=== PATIENT | female | born 1940 | race Caucasian/White ===

== ENCOUNTER 2016-11-25 11:55 | Emergency (ER) | payer OTHER, MEDICARE ==
[2016-11-25 12:53] LABS: % IMMATURE GRANULYOCYTES 0.4 % (0.0-1.1); ABSOLUTE IMMATURE GRANULOCYTES 0.03 10^3/uL (0.00-0.10); ADD DIFF? NO; ADD MORPH? NO; ADD SCAN? NO; ATYPICAL LYMPHOCYTE FLAG 0 (0-99); FRAGMENT RBC FLAG 0 (0-99); HEMATOCRIT 47.3 % (38.0-47.0); HEMOGLOBIN 16.4 g/dL (12.6-16.3); LEFT SHIFT FLG 0 (0-99); LIPEMIA HEMOLYSIS FLAG 90 (0-99); MEAN CELL HEMOGLOBIN 31.2 pg (27.9-34.1); MEAN CELL HEMOGLOBIN CONCENTR. 34.7 g/dL (32.4-36.7); MEAN CELL VOLUME 89.9 fL (81.5-99.8); MEAN PLATELET VOLUME 8.6 fL (8.7-11.7); PLATELET CLUMPS FLAG 0 (0-99); PLATELET COUNT 261 10^3/uL (150-400); RED BLOOD CELL COUNT 5.26 10^6/uL (4.18-5.33); RED CELL DISTRIBUTION WIDTH 12.6 % (11.5-15.2)
--- NOTE | 2016-11-25 13:04 | CPEKG ---
Heart Rate: 63 RR Interval: 952 P-R Interval: 184 QRSD Interval: 128 QT Interval: 492 QTC Interval: 504 P [place]: 32 QRS [place]: 1 T Wave [place]: 12 EKG Severity - ABNORMAL ECG - EKG Impression: SINUS RHYTHM EKG Impression: RIGHT BUNDLE BRANCH BLOCK EKG Impression: QTc prolonged to 504 Electronically Signed By: Jules Calderon 25-Nov-2016 16:25:27
[2016-11-25 13:08] LABS: ALANINE AMINOTRANSFERASE 32 IU/L (9-52); ALBUMIN 4.2 g/dL (3.5-5.0); ALKALINE PHOSPHATASE 114 IU/L (38-126); ANION GAP 20 mEq/L (8-16); ASPARTATE AMINOTRANSFERASE 21 IU/L (14-46); BILIRUBIN,TOTAL 0.9 mg/dL (0.1-1.4); CALCIUM 9.6 mg/dL (8.5-10.4); CARBON DIOXIDE 14 mEq/l (22-31); CHLORIDE 105 mEq/L (97-110); CREATININE 0.8 mg/dL (0.6-1.0); GLOMERULAR FILTRATION RATE > 60; GLUCOSE 139 mg/dL (70-100); SODIUM 139 mEq/L (134-144); TOTAL PROTEIN 7.3 g/dL (6.3-8.2)
[2016-11-25 13:11] VITALS: TEMP 97.3
[2016-11-25 13:19] LABS: TROPONIN I < 0.012 ng/mL (0-0.034)
--- NOTE | 2016-11-25 13:43 | UCPHY ---
H & P Patient Type: New Chief Complaint Nursing Narrative: pt. states severe dizziness this am, has had intermittent bouts the last 1-1.5weeks,pressure also to chest this last week., noticed palpatations today. Vomited x1 here upon arrival. denies fever/chills Time Seen by Provider: 11/25/16 13:06 HPI/ROS: CHIEF COMPLAINT: 1. severe spinning with profound vomiting and nausea 2. Intermittent chest tightness 3. periods of difficulty swallowing, with pain HISTORY OF PRESENT ILLNESS: this is a medically stable 76-year-old female with several problems discussed today. That which happened today that prompted visit is outlined below. The issues with respect to her chest tightness and difficulty swallowing will be outlined in the review of systems. First was what happened today while out having coffee. Initially she had been up the day for several hours feeling totally fine. In fact she spent sometime this coffee shop visiting with a friend feeling well and had gone up stairs to the bathroom there without incident. As she left shopping she felt a little under easy while sitting in the car at thinking maybe she was not capable of driving it. When she got home she felt further unsteady and then noted that she went to lay down, after a period of time, at which time she started feeling , particularly ill with a sense of nausea. She went to get up and felt markedly worse with a profound sense of spinning and the like. It was like nothing she has ever experienced before. She contacted friend who brought her here. She was unable to get out of the car and walk on her own but had come in by wheelchair. She really was not attuned to and recognizing the fact she had some occipital pressure but upon checking with her in discussing with her she has noted some. At the same token she was able to move both arms legs equally well without any trouble with coordination or strength. Furthermore she had no difficulty with vision as well as difficulties. There is no speech problems arm word finding issues or enunciation problems. Her speech remained fluent. No recent trauma. At this point in time there is none on the chest pain as noted below 1 of the review of systems. Further as she has vomited upon arriving here there has been no recurrence of the symptoms under the GI category REVIEW OF SYSTEMS: Constitutional: No fever, no chills. Eyes: No discharge. No diplopia ENT: No sore throat. Cardiovascular: Some 10-14 days ago while watching TV without any particular exertion she had a sense that she had a tightness across her chest was if has her bra was too tight. The symptoms last for for couple of hours and then abated completely. In the interim she has had no exercise induced symptomatology or decrease in exercise capacity. Furthermore there was no pleuritic component at that time. Finally despite the stress of this particular illness there is no recurrence of this kind of tightness like feeling in the chest. There has been no shortness of breath or nausea or diaphoresis at that time. In the interim she has continued to do usual activities without difficulty. Respiratory: No cough, shortness of breath, or wheezing. Gastrointestinal: While she has been vomiting today secondary to the spinning sensation there has been no antecedent problems with GI upset. She does recall having trouble several weeks ago if not months ago with a sense that she had could not swallow correctly and had some pain with swallowing. This was not really associated with the evening meal. It subsided but is occurred on occasions since. She does not have a remote history of acid peptic disease. Genitourinary: No hematuria or frequency. Musculoskeletal: No back pain. Skin: No rashes. Neurological: No headache. 10 point ROS otherwise negative Source: Patient Exam Limitations: No limitations - Personal History Current Tetanus Diphtheria and Acellular Pertussis (TDAP): Unsure - Medical/Surgical History Hx Asthma: No Hx Chronic Respiratory Disease: No Hx Diabetes: No Hx Cardiac Disease: No Hx Renal Disease: No Hx Cirrhosis: No Hx Alcoholism: No Hx HIV/AIDS: No Hx Splenectomy or Spleen Trauma: No Other PMH: med hx-none. surg-left humerus,rt shoulder - Family History Significant Family History: No pertinent family hx, Other (Both parents of noncardiac causes) - Social History Smoking Status: Never smoked Tobacco Use: Secondhand (Parents smoked as a child) Alcohol Use: None Drug Use: None - Physical Exam Exam: General Appearance: Alert, marked distress as I enter the room with cloth over her eyes but there is no pallor or diaphoresis.. Afebrile. Normal phonation. No respiratory distress. The minute I sit her up after conducting a Barnay- Test she started vomiting and has both nystagmus at rest before later down and when she comes up but not during the provocative maneuvers during the Barnay- Test Eyes: Pupils equal and round no pallor or injection. No icterus. there is horizontal nystagmus at rest, with her sitting up ENT, Mouth: Mucous membranes dry. Pharynx without erythema or exudate. TM Clear. Neck: No adenopathy. Supple. No JVD. Trachea in midline. Respiratory: There are no retractions, lungs are clear to auscultation. Cardiovascular: Regular rate and rhythm, without murmur Abdomen: Soft and nontender, no masses, bowel sounds normal. Scaphoid. Neurological: Ox3. No motor weakness. Sensation intact. She can't perform [id number] and amlm-vg-[id number] as well as rapid movements well. However when laid her back for the Barnay-Test there is no nystagmus with head to the right or left. She has no difficulties., but when I sit her up from that position she became profoundly nauseated and started vomiting of food type nature without any hematemesis. Also she had nystagmus that time. Skin: Warm and dry, no rashes. Musculoskeletal: No joint swelling. Extremities: No edema. Homans sign negative. No cords. Psychiatric: Normal affect. Constitutional: Initial Vital Signs Temperature (C) 36.3 C 11/25/16 12:20 Heart Rate 76 11/25/16 12:20 Respiratory Rate 18 11/25/16 12:20 Blood Pressure 188/81 H 11/25/16 12:20 O2 Sat (%) 98 11/25/16 12:20 O2 Delivery Mode Room Air Allergies/Adverse Reactions: narcotics Allergy (Uncoded 11/25/16 12:38) Home Medications: Medication Instructions Recorded Cholecalciferol Vit D3 [Vitamin D3 1,000 units PO DAILY 11/08/16 (*)] Herbals/Supplements -Info Only 1 ea PO DAILY 11/08/16 [place]-3 Fatty Acids [Fish Oil 1000 1,000 mg PO DAILY 11/08/16 mg (*)] Meclizine HCl [Meclizine HCl 25 mg 1 - 2 tab PO TID PRN #14 tab 11/25/16 (RX,OTC)] Medical Decision Making - Diagnostics EKG Interpretation: EKG: Interpreted by me contemporaneously. Normal sinus rhythm. Heart rate 63. QTc 500 STT segment: Normal. No ischemic changes. T Waves: Normal Summary: Normal sinus rhythm, without ischemia, with prolonged QTC Imaging: CT scan of the head. Interpreted by radiologist. Normal for age CT scan. Films reviewed by me. ED Course/Re-evaluation: Given the QTC of 500 and opted to avoid Zofran. She was given Benadryl IV with the intention of consideration of a phenothiazine. However sweat with 50 mg of p. o. meclizine. She was observed for a period of time. Laboratory assessment shows a elevated anion gap with a decreased CO2. I do not see that she has been having enough volume loss to attribute this to. After further evaluation and diagnostic testing and intervention will repeat these. Fourteen 15-she is better. Until about 30 minutes the meclizine. Awaiting longer. She has received 950 cc of fluid at this point in time The with the chest pain was approximately 10-14 days ago. Her troponin is undetectable. Thereby she should have OP follow up, thus referral to Cardiology. 5:00 p.m. hours. She has a walk down the hoover to the bathroom with a spot her. Her gait is slightly wide-based but she is markedly improved. She speaks in animated fashion with head being moved side to side. She is able to tolerate fluids. She is ready to go. Discharged plan reviewed with patient, again Follow-up laboratory testing performed shows a distinct improvement in than a gap with resolution of the CO2 is improving and the headache as reduced. Differential Diagnosis: Differential Includes but is not limited to: Intraparenchymal hemorrhage, subarachnoid hemorrhage, meningitis, migraine, status migraine, viral syndrome, peripheral vertigo, Meniere's disease, cerebellar infarct, cerebellar hemorrhage.. - Data Points Laboratory Results: Laboratory Results 11/25/16 12:45 11/25/16 16:50 11/25/16 11/25/16 11/25/16 16:50 13:00 12:45 WBC RBC Hgb Hct MCV MCH MCHC RDW Plt Count MPV Neut % (Auto) Lymph % (Auto) [place] % (Auto) Eos % (Auto) Baso % (Auto) Nucleat RBC Rel Count Absolute Neuts (auto) Absolute Lymphs (auto) Absolute Monos (auto) Absolute Eos (auto) Absolute Basos (auto) Absolute Nucleated RBC Immature Gran % Immature Gran # Sodium 141 mEq/L mEq/L Cancelled 139 mEq/L mEq/L (134-144) (134-144) Potassium 4.3 mEq/L mEq/L Cancelled 4.0 mEq/L mEq/L (3.5-5.2) (3.5-5.2) Chloride 106 mEq/L mEq/L Cancelled 105 mEq/L mEq/L (97-110) (97-110) Carbon Dioxide 18 mEq/l L mEq/l Cancelled 14 mEq/l L mEq/l (22-31) (22-31) Anion Gap 17 mEq/L H mEq/L Cancelled 20 mEq/L H mEq/L (8-16) (8-16) BUN 19 mg/dL mg/dL Cancelled 21 mg/dL mg/dL (7-23) (7-23) Creatinine 0.7 mg/dL mg/dL Cancelled 0.8 mg/dL mg/dL (0.6-1.0) (0.6-1.0) Estimated GFR > 60 Cancelled > 60 Glucose 95 mg/dL mg/dL Cancelled 139 mg/dL H mg/dL (70-100) (70-100) Calcium 9.0 mg/dL mg/dL Cancelled 9.6 mg/dL mg/dL (8.5-10.4) (8.5-10.4) Magnesium 2.1 mg/dL mg/dL (1.6-2.3) Total Bilirubin 0.9 mg/dL mg/dL 0.9 mg/dL mg/dL (0.1-1.4) (0.1-1.4) Conjugated Bilirubin 0.3 mg/dL mg/dL (0.0-0.5) Unconjugated Bilirubin 0.6 mg/dL mg/dL (0.0-1.1) AST 22 IU/L IU/L 21 IU/L IU/L (14-46) (14-46) ALT 33 IU/L IU/L 32 IU/L IU/L (9-52) (9-52) Alkaline Phosphatase 110 IU/L IU/L 114 IU/L IU/L (38-126) (38-126) Troponin I Pending Cancelled < 0.012 ng/mL ng/mL (0-0.034) NT-Pro-B Natriuret Pep 62 pg/mL pg/mL (0-125) Total Protein 7.3 g/dL g/dL 7.3 g/dL g/dL (6.3-8.2) (6.3-8.2) Albumin 4.2 g/dL g/dL 4.2 g/dL g/dL (3.5-5.0) (3.5-5.0) 11/25/16 12:45 WBC 6.90 10^3/uL 10^3/uL (3.80-9.50) RBC 5.26 10^6/uL 10^6/uL (4.18-5.33) Hgb 16.4 g/dL H g/dL (12.6-16.3) Hct 47.3 % H % (38.0-47.0) MCV 89.9 fL fL (81.5-99.8) MCH 31.2 pg pg (27.9-34.1) MCHC 34.7 g/dL g/dL (32.4-36.7) RDW 12.6 % % (11.5-15.2) Plt Count 261 10^3/uL 10^3/uL (150-400) MPV 8.6 fL L fL (8.7-11.7) Neut % (Auto) 82.4 % H % (39.3-74.2) Lymph % (Auto) 12.5 % L % (15.0-45.0) [place] % (Auto) 4.5 % % (4.5-13.0) Eos % (Auto) 0.1 % L % (0.6-7.6) Baso % (Auto) 0.1 % L % (0.3-1.7) Nucleat RBC Rel Count 0.0 % % (0.0-0.2) Absolute Neuts (auto) 5.68 10^3/uL 10^3/uL (1.70-6.50) Absolute Lymphs (auto) 0.86 10^3/uL L 10^3/uL (1.00-3.00) Absolute Monos (auto) 0.31 10^3/uL 10^3/uL (0.30-0.80) Absolute Eos (auto) 0.01 10^3/uL L 10^3/uL (0.03-0.40) Absolute Basos (auto) 0.01 10^3/uL L 10^3/uL (0.02-0.10) Absolute Nucleated RBC 0.00 10^3/uL 10^3/uL (0-0.01) Immature Gran % 0.4 % % (0.0-1.1) Immature Gran # 0.03 10^3/uL 10^3/uL (0.00-0.10) Sodium Potassium Chloride Carbon Dioxide Anion Gap BUN Creatinine Estimated GFR Glucose Calcium Magnesium Total Bilirubin Conjugated Bilirubin Unconjugated Bilirubin AST ALT Alkaline Phosphatase Troponin I NT-Pro-B Natriuret Pep Total Protein Albumin Medications Given: Discontinued Medications Diphenhydramine HCl (Benadryl Injection) 12.5 mg IVP EDNOW ONE Stop: 11/25/16 14:08 Last Admin: 11/25/16 14:58 Dose: 12.5 mg Sodium Chloride (Ns) 1,000 mls @ 0 mls/hr IV ONCE ONE PRN Reason: Wide Open Stop: 11/25/16 15:06 Last Admin: 11/25/16 14:56 Dose: 1,000 mls Meclizine HCl (Meclizine Hcl) 50 mg PO EDNOW ONE Stop: 11/25/16 14:07 Last Admin: 11/25/16 15:45 Dose: 50 mg Departure - Departure Disposition: Home, Routine, Self-Care Clinical Impression: Peripheral vertigo Qualifiers: Laterality: unspecified laterality Qualified Code(s): H81.399 - Other peripheral vertigo, unspecified ear Condition: Good Referrals: Anaya Tineo MD [Primary Care Provider] - As per Instructions Harpreet Ross MD [Medical Doctor] - As per Instructions Liliana Fatima MD [Medical Doctor] - As per Instructions Prescriptions: Meclizine HCl [Meclizine HCl 25 mg (RX,OTC)] 1 - 2 tab PO TID PRN #14 tab PRN Reason: vertigo or nausea - PQRS PQRS Measurement: 134: Depression screening and followup, PRIME MD-PHQ2 (12 years and older) Over the last 2 weeks, how often have you been bothered by any of the following problems? 1. Feeling down, depressed, or hopeless? 2. Little interest or pleasure in doing things? Patient answered no to both 1 and 2 130: Documentation of medications. Reviewed all patient medications, doses, route and frequency. . 226: Do you smoke? No. 47: 65 and older: Advanced care planning. Patient designates surrogate decision maker as daughter. Patient has advanced directive. 51: 18 years old and older with diagnosis of COPD, spirometry performance. Patient has no history of COPD 52: 18 years old and older with COPD and symptoms of COPD or FEV1<60% predicted prescribed a B Agonist. Patient has no history of COPD
[2016-11-25 14:05] LABS: ALBUMIN 4.2 g/dL (3.5-5.0); BILIRUBIN,TOTAL 0.9 mg/dL (0.1-1.4); BILIRUBIN-CONJUGATED 0.3 mg/dL (0.0-0.5); BILIRUBIN-UNCONJUGATED 0.6 mg/dL (0.0-1.1); MAGNESIUM 2.1 mg/dL (1.6-2.3); TOTAL PROTEIN 7.3 g/dL (6.3-8.2)
[2016-11-25] MEDS ORDERED: MECLIZINE HCL 25 MG TAB PO ONE (14:06)
[2016-11-25] MEDS ORDERED: NS 1,000 ML IV ONE (15:05)
[2016-11-25 17:04] LABS: ANION GAP 17 mEq/L (8-16); CARBON DIOXIDE 18 mEq/l (22-31); CHLORIDE 106 mEq/L (97-110); CREATININE 0.7 mg/dL (0.6-1.0); GLOMERULAR FILTRATION RATE > 60; GLUCOSE 95 mg/dL (70-100); POTASSIUM 4.3 mEq/L (3.5-5.2); SODIUM 141 mEq/L (134-144)
[2016-11-25 17:16] LABS: TROPONIN I < 0.012 ng/mL (0-0.034)
[2016-11-25 18:47] VITALS: BP 149/72
[2016-11-25 23:45] VITALS: PULSE 77; RESP 16; O2SAT 97
== END 2016-11-25 18:20 | disposition home or self-care (01) ==
LOC: CED 11:55
DX: H81.399 Other peripheral vertigo, unspecified ear (principal)
CPT/HCPCS: 70450; 93005; 96361; 96374; G0463; J1200; 80048-PO; 80053-PO; 80076-PO; 83735-PO; 83880-PO; 84484-PO; 85025-PO; 93010-PO; 99205-PO

== ENCOUNTER → 2016-12-13 | Outpatient (CLI) | payer OTHER, MEDICARE | LOC: BHFA 11:15 | PROVIDERS: ATTEND Internal Medicine Cardiovascular Disease | DX: Z01.810 Encounter for preprocedural cardiovascular examination (principal); I25.10 Atherosclerotic heart disease of native coronary artery without angina pectoris; I49.1 Atrial premature depolarization; R01.1 Cardiac murmur, unspecified; E78.5 Hyperlipidemia, unspecified ==

== ENCOUNTER → 2016-12-14 | Outpatient (CLI) | payer OTHER, MEDICARE | LOC: BHFA 13:00 | PROVIDERS: ATTEND Internal Medicine Cardiovascular Disease | DX: R07.9 Chest pain, unspecified (principal); I49.1 Atrial premature depolarization | CPT/HCPCS: 78452; 93017; A9500 ==

== ENCOUNTER → 2016-12-20 | Outpatient (CLI) | payer OTHER, MEDICARE | LOC: BHFA 15:30 | PROVIDERS: ATTEND Internal Medicine Cardiovascular Disease | DX: R01.1 Cardiac murmur, unspecified (principal); R07.9 Chest pain, unspecified ==

== ENCOUNTER 2017-05-11 05:46 | Observation (INO) | payer OTHER, MEDICARE ==
[2017-05-11] MEDS ORDERED: ceFAZolin 2 GM/DEXTROSE 100 ML IV ONE (06:02)
[2017-05-11] MEDS ORDERED: PHENAZOPYRIDINE HCL 100 MG TAB PO ONE (06:02)
[2017-05-11] MEDS ORDERED: LIDOCAINE 1% 2 ML INJ ID PRN (06:07)
[2017-05-11] MEDS ORDERED: LR 1,000 ML IV ONE (06:07)
[2017-05-11] MEDS ORDERED: PHENAZOPYRIDINE HCL 200 MG TAB PO ONE (06:15)
[2017-05-11] MEDS ORDERED: PHENAZOPYRIDINE HCL 200 MG TAB ONE (06:44)
[2017-05-11] MEDS ORDERED: SCOPOLAMINE HYDROBROMIDE 1 MG/3 DAYS PATCH TD ONE ×2 (07:03→07:11)
--- NOTE | 2017-05-11 07:03 | PDANEPAE ---
ANE History of Present Illness sacrocolpopexy ANE Past Medical History - Cardiovascular History Hx Hypertension: No Hx Arrhythmias: No Hx Chest Pain: No Hx Coronary Artery / Peripheral Vascular Disease: No Hx CHF / Valvular Disease: No Hx Palpitations: No Cardiovascular History Comment: on Atorvastatin x 3 1/2 mos. Patient reports SBP in 140's at home recently - Pulmonary History Hx COPD: No Hx Asthma/Reactive Airway Disease: No Hx Recent Upper Respiratory Infection: No Hx Oxygen in Use at Home: No Hx Sleep Apnea: No Sleep Apnea Screening Result - Last Documented: Negative - Neurologic History Hx Cerebrovascular Accident: No Hx Seizures: No Hx Dementia: No - Endocrine History Hx Diabetes: No Hypothyroid: No Hyperthyroid: No - Renal History Hx Renal Disorders: No Renal History Comment: BLADDER and uterine PROLAPSE - Liver History Hx Hepatic Disorders: No - Neurological & Psychiatric Hx Hx Neurological and Psychiatric Disorders: No Neurological / Psychiatric History Comment: ANXIETY - Cancer History Hx Cancer: No Cancer History Comment: SQUAMOUS CELL REMOVED - Congenital Disorder History Hx Congenital Disorders: No - GI History Hx Gastrointestinal Disorders: Yes Gastrointestinal History Comment: HEARTBURN rarely- takes TUMS. feels like food can get stuck-rarely - Other Health History Other Health History: DRY ITCHY SKIN - Chronic Pain History Chronic Pain: No - Surgical History Prior Surgeries: RTC R. TIBAL LIGATION. BLADDER SLING. HUMERUS REPAIR. CATARACTS. PELVIC FX RAMI IN PAST ANE Review of Systems Review of Systems: - Exercise capacity METS (RN): 4 METS ANE Patient History - Allergies Allergies/Adverse Reactions: narcotics Allergy (Uncoded 05/10/17 11:42) Vomiting - Home Medications Home Medications: Cholecalciferol Vit D3 [Vitamin D3 (*)] 1,000 units PO DAILY 11/08/16 [Last Taken 05/06/17 08:00] Herbals/Supplements -Info Only 1 ea PO DAILY 11/08/16 [Last Taken 05/06/17 08:00 ] [place]-3 Fatty Acids [Fish Oil 1000 mg (*)] 1,000 mg PO DAILY 11/08/16 [Last Taken 05/06/17 08:00] Aspirin [Aspirin 81mg (*)] 81 mg PO DAILY 05/06/17 [Last Taken 05/05/17 08:00] Atorvastatin Calcium [Lipitor 20 mg (*)] 20 mg PO HS 05/06/17 [Last Taken 22:00] - NPO status NPO Since - Liquids (Date): 05/10/17 NPO Since - Liquids (Time): 23:00 NPO Since - Solids (Date): 05/10/17 NPO Since - Solids (Time): 19:30 - Anes Hx Anes Hx: post operative nausea, slow to awaken from anesthesia - Smoking Hx Smoking Status: Never smoked - Alcohol Use Alcohol Use: Rarely - Family Anes Hx Family Anes Hx: none Family Hx Anesthesia Complications: NEG ANE Labs/Vital Signs - Vital Signs Blood Pressure: 172/84 Heart Rate: 75 Respiratory Rate: 18 O2 Sat (%): 98 Height: 154.94 cm Weight: 51.71 kg ANE Physical Exam - Airway Neck exam: FROM Mallampati Score: Class 1 Mouth exam: normal dental/mouth exam (Upper front caps) - Pulmonary Pulmonary: clear to auscultation - Cardiovascular Cardiovascular: regular rate and rhythym - ASA Status ASA Status: II ANE Anesthesia Plan Anesthesia Plan: general endotracheal anesthesia
[2017-05-11] MEDS ORDERED: MIDAZOLAM 2 MG/2 ML VIAL IVP ONE (07:06)
[2017-05-11] MEDS ORDERED: MIDAZOLAM 2 MG/2 ML VIAL ONE (07:08)
--- NOTE | 2017-05-11 07:10 | PDHPUP ---
History & Physical Update H&P update statement: This history and physical update is based on an assessment of the patient which was completed after admission or registration (within 24 hours), but prior to the surgery/procedure. H&P update: H&P reviewed & patient examined, no change in patient's condition since H&P completed
[2017-05-11] MEDS ORDERED: PROPOFOL 200 MG/20 ML VIAL ONE ×3 (07:14→08:57)
[2017-05-11] MEDS ORDERED: ROCURONIUM 50 MG/5 ML VIAL ONE (07:14)
[2017-05-11] MEDS ORDERED: DEXAMETHASONE 4 MG/ML VIAL ONE ×2 (07:14)
[2017-05-11] MEDS ORDERED: BUPIVACAINE 0.5% 30 ML SDV ONE (07:32)
[2017-05-11] MEDS ORDERED: ESMOLOL HCL 100 MG/10 ML VIAL IV ONE (07:56)
[2017-05-11] MEDS ORDERED: LABETALOL HCL 5 MG/ML 20 ML MDV ONE (08:16)
[2017-05-11] MEDS ORDERED: ONDANSETRON 4 MG/2 ML VIAL ONE (09:07)
[2017-05-11] MEDS ORDERED: GLYCOPYRROLATE 0.2 MG/1 ML VIAL ONE (09:10)
[2017-05-11] MEDS ORDERED: NEOSTIGMINE METHYLSULFATE 5 MG/5 ML SYR ONE (09:10)
[2017-05-11] MEDS ORDERED: fentaNYL 100 MCG/2 ML INJ IVP PRN (09:56)
[2017-05-11] MEDS ORDERED: ACETAMINOPHEN 500 MG TAB PO PRN (09:56)
[2017-05-11] MEDS ORDERED: NALOXONE HCL 0.4 MG/ML INJ IVP PRN (09:56)
[2017-05-11] MEDS ORDERED: DIAZEPAM 10 MG/2 ML SYR IVP PRN (10:10)
[2017-05-11] MEDS ORDERED: PROMETHAZINE HCL 25 MG/ML INJ IVP PRN (10:10)
[2017-05-11] MEDS ORDERED: HYDROmorphONE/DILAUDID 1 MG/ML SYR IVP PRN (10:10)
[2017-05-11] MEDS ORDERED: ONDANSETRON 4 MG/2 ML VIAL IVP PRN (10:11)
[2017-05-11] MEDS ORDERED: HYDROCODONE/APAP 5/325 TAB PO PRN (10:11)
--- NOTE | 2017-05-11 10:18 | POSTOPPROG ---
Post Op Note Date of Operation: 05/11/17 Surgeon: Christian Tan Camera Maker: Melissa Cosby Anesthesia: GET(General Endotracheal) Pre-op Diagnosis: Uterovaginal prolapse, stress incontinence Post-op Diagnosis: Same Procedure: Robotic hyst, sacrocolpopexy, retropubic sling, cysto Findings: Ureters function at end of case Inf/Abcess present in the surg proc area at time of surgery?: No EBL: Minimal Complications: None
[2017-05-11] MEDS ORDERED: LR 1,000 ML IV SCH (10:30)
--- NOTE | 2017-05-11 12:26 | GOP ---
[f rep st] OPERATIVE REPORT DATE OF OPERATION: 05/11/2017 SURGEON: Christian Tan MD PLASTICS SCIENTIST: Melissa Cosby CFA. ANESTHESIA: General. PREOPERATIVE DIAGNOSIS: 1. Cystocele. 2. Rectocele. 3. Uterine prolapse. 4. Stress urinary incontinence. POSTOPERATIVE DIAGNOSIS: 1. Cystocele. 2. Rectocele. 3. Uterine prolapse. 4. Stress urinary incontinence. PROCEDURE PERFORMED: 1. Robotic-assisted laparoscopic hysterectomy. 2. Bilateral salpingectomy. 3. Robotic-assisted laparoscopic sacrocervicopexy with mesh. 4. Repair of cystocele and rectocele. 5. Retropubic sling. 6. Cystoscopy. FINDINGS: SPECIMENS: Uterus, bilateral tubes. ESTIMATED BLOOD LOSS: Scant. DESCRIPTION OF PROCEDURE: COMPLICATIONS: None. DISPOSITION: Patient stable to PACU. PROCEDURE: The patient was taken to the operating room where she was identified. General anesthesia was administered and found to be adequate. She was placed in the lithotomy position and prepared an d draped in normal sterile fashion. A Mendoza catheter was placed in her bladder. A 1 cm infraumbilical incision was made with a scalpel. The Veress needle with the CO2 gas flowing w as advanced into the peritoneal cavity. The abdomen was insufflated with carbon dioxide gas. A 12 m m trocar followed by the laparoscope were then inserted. The upper abdomen was unremarkable. Two lateral ports were placed on either side under direct visualization. She then was placed in [place] position and the da Keke robot docked on the left side. The instruments were then brought into the abdominal cavity under direct visualization. The left fallopian tube was along t he mesosalpinx and excised. The same was performed on the right side. The left utero-ovarian ligame nt followed by the round ligament were then cauterized and transected. The anterior lip of the broad ligament was then incised over the left uterine vessels and across the cervix. The bladder was gent ly dissected off the cervix and upper vagina. The left uterine vasculature was then cauterized and t ransected. The exact same procedure was performed on the patient's right side. The uterus was then bivalved to aid in removal through the umbilicus. The uterus and upper 2/3 of the cervix were amputa yohana from the lower third of the cervix with the hot ivan. The specimen was placed in the right upp er quadrant for later removal. The Colpo-Probe was then placed in the vagina. The bladder was further dissected off the anterior va ginal wall down to the level of the bladder neck. The rectovaginal space was then entered and the re ctum dissected off the posterior vaginal wall down to the level of the perineal body. Measurements w ere then obtained and the mesh trimmed to size. The sigmoid colon was then retracted laterally. The peritoneum over the sacral promontory was incise d. The fat pad was gently dissected off the anterior longitudinal ligament. The mesh was then broug ht into the abdominal cavity. Three sutures of 4-0 Mohall-Juan were used to attach the distal posterior mesh to the perineal body. Two additional rows of Mohall-Juan sutures were placed posteriorly. Three rows were placed anteriorly to suture the mesh down to the level of the bladder neck and laterally to the paravaginal tissues. The Colpo-Probe was then removed. The sacral arm of the mesh was placed over the promontory and the tension adjusted. I then scrubbed back into the case to examine the vagina. The tension was further adjusted to resolv e the cystocele and rectocele without undue tension on the vagina. Two sutures of 2-0 Mohall-Juan were used to attach the sacral arm of the mesh to the anterior longitudinal ligament at the level of the u pper first sacral vertebral body below the intervertebral disk space. The excess mesh was then ken ed. The pelvis was irrigated with sterile saline and hemostasis was present. The peritoneum was then chaya sed over the entire mesh. The specimen was then removed through the umbilicus. The fascia was close d with 0 Vicryl, the skin with 4-0 Monocryl and surgical adhesive. Attention was then turned to the sling portion of the procedure. A midurethral incision was made wit h a scalpel. Tunnels were created bilaterally around the urethra toward the retropubic space. The r etropubic trocar was placed through the left tunnel and redirected around the symphysis pubis and out through a suprapubic stab incision. The same procedure was performed on the patient's right side. Cystoscopy was performed and both ureters had vigorous jets of urine. There was no evidence of bladd er nor urethral injury seen. No mesh nor suture was seen in the bladder nor urethra. The sling was then adjusted to allow a small midurethral gap. The vaginal epithelium was closed with 0 Vicryl and the skin with 4-0 Monocryl. Vaginal packing was then placed, anesthesia was reversed and the patient taken to the PACU awake and in stable condition. /[id number]/MODL
[2017-05-11] MEDS: KETOROLAC 15 MG/1 ML SDV IVP SCH ×2 (12:57→18:40)
--- NOTE | 2017-05-11 13:51 | POSTANESTH ---
Post Anesthetic Evaluation Cardiovascular Status: Similar to Pre-Op Cond Respiratory Status: Normal, Stable Level of Consciousness/Mental Status: Can Participate in Eval Pain Control: Adequate, Prn Tx Ordered Complications Possibly Related to Anesthesia: None Noted
[2017-05-11] MEDS: DOCUSATE SODIUM 100 MG CAP PO SCH (20:02)
[2017-05-12] MEDS: KETOROLAC 15 MG/1 ML SDV IVP SCH ×2 (00:58→08:39)
[2017-05-12 05:33] LABS: HEMATOCRIT 40.5 % (38.0-47.0); HEMOGLOBIN 13.9 g/dL (12.6-16.3)
[2017-05-12] MEDS: SIMETHICONE 80 MG TAB CHEW PO SCH ×2 (06:47→13:31)
[2017-05-12] MEDS ORDERED: PATCH REMOVAL 1 EA PATCH TD ONE (07:11)
[2017-05-12] MEDS ORDERED: KETOROLAC 15 MG/1 ML SDV IVP SCH (08:45)
[2017-05-12] MEDS: DOCUSATE SODIUM 100 MG CAP PO SCH (10:44)
[2017-05-12 10:59] VITALS: BP 117/64; PULSE 64; RESP 16; TEMP 97.8; O2SAT 95
--- NOTE | 2017-05-14 16:40 | GDS ---
[f rep st] DISCHARGE SUMMARY DISCHARGE DIAGNOSES: 1. Cystocele. 2. Rectocele. 3. Uterine prolapse. 4. Stress urinary incontinence. PROCEDURES: 1. Robotic-assisted laparoscopic hysterectomy, bilateral salpingectomy. 2. Robotic-assisted laparoscopic sites. The sacral cervical pexy with mesh. 3. Repair of cystocele and rectocele. 4. Retropubic sling. 5. Cystoscopy. HISTORY: The patient suffers from uterovaginal prolapse and stress incontinence. She was taken to [facility] operating room on 05/11/2017 where she underwent the above procedures. Her postoperative course w as uneventful. The morning after surgery she was ambulating, voiding, and tolerating a general diet. She was discharged home on postoperative day #1 in good condition. Medications included [place] and ibuprofen for pain. She was to follow up in the office in approximately 2 weeks. /[id number]/MODL
== END 2017-05-12 12:00 | disposition home or self-care (01) ==
LOC: F3N 05:46 → FOB 11:43
PROVIDERS: ADMIT Obstetrics & Gynecology; ATTEND Obstetrics & Gynecology
PROC: 0DQP0ZZ Repair Rectum, Open Approach (ICD-10-PCS; principal; 2017-05-11 07:15)
PROC: 8E0W8CZ Robotic Assisted Procedure of Trunk Region, Via Natural or Artificial Opening Endoscopic (ICD-10-PCS; principal; 2017-05-11 07:15)
PROC: 0UT74ZZ Resection of Bilateral Fallopian Tubes, Percutaneous Endoscopic Approach (ICD-10-PCS; principal; 2017-05-11 07:15)
PROC: 0UUG4JZ Supplement Vagina with Synthetic Substitute, Percutaneous Endoscopic Approach (ICD-10-PCS; principal; 2017-05-11 07:15)
PROC: 0TUC0JZ Supplement Bladder Neck with Synthetic Substitute, Open Approach (ICD-10-PCS; principal; 2017-05-11 07:15)
PROC: 0UT94ZZ Resection of Uterus, Percutaneous Endoscopic Approach (ICD-10-PCS; principal; 2017-05-11 07:15)
DX: N81.2 Incomplete uterovaginal prolapse (principal); N81.11 Cystocele, midline; N39.3 Stress incontinence (female) (male); N81.6 Rectocele
CPT/HCPCS: 57250; 57288; 57425; 58542; C1763; C1771; J0690; J1100; J1885; J2250; J2405; J2704; J2710; J3490

== ENCOUNTER → 2017-09-07 | Outpatient (CLI) | payer OTHER, MEDICARE | LOC: FIMAGING 17:06 | DX: M79.661 Pain in right lower leg (principal) ==

== ENCOUNTER → 2017-10-24 | Outpatient (CLI) | payer OTHER, MEDICARE | LOC: FIMAGING 09:07 | PROVIDERS: ATTEND Obstetrics & Gynecology Gynecology | DX: Z13.820 Encounter for screening for osteoporosis (principal); M81.0 Age-related osteoporosis without current pathological fracture; Z78.0 Asymptomatic menopausal state; Z79.899 Other long term (current) drug therapy ==

== ENCOUNTER → 2018-06-12 | Outpatient (CLI) | payer OTHER, MEDICARE ==
--- NOTE | 2018-06-12 16:03 | ECHO ---
[email or web address] [address] [address] Main: [phone] Fax: Transthoracic Echocardiogram Name: SARAH SINGH MR#: [id number] Study Date: 06/12/2018 Study Time: 01:58 PM Date of : 1940 Age: 77 year(s) Height: 154.9 cm (61 in.) Weight: 52.16 kg (115 lb.) BSA: 1.49 m2 Gender: Female Examination: Echo Indication: Image Quality: Contrast: Requested by: Aydee Hansen BP: 122 mmHg/72 mmHg Heart Rate: Rhythm: Normal sinus rhythm with ectopy Indication: Procedure Staff Analyst [employer]: Mikhail Flores RDCS Reading Physician: Itz Link MD Requesting Provider: Conclusions: Normal global systolic LV function. EF is 72 %. Mild mitral valve regurgitation is present. Moderate aortic valve regurgitation is present. Mild tricuspid regurgitation is present. The pulmonary artery pressure is normal. Measurements: Chambers Valvular Assessment AV/MV Valvular Assessment TV/PV Normal Normal Normal Name Value Range Name Value Range Name Value Range IVSd (2D): 0.8 cm (0.6 cm-1.1 AV Vmax: 1.89 m/s (1 m/s-1.7 TR Vmax: 2.29 mm/s ( - ) cm) m/s) TR PGmax: 21 mmHg ( - ) LVDd (2D): 3.9 cm (3.9 cm-5.3 AV maxP mmHg ( - ) syst. PAP: 26 mmHg ( - ) cm) LVOT Vmax: 1.21 m/s (0.7 m/s-1.1 PV Vmax: 0.53 m/s (0.6 m/s-0.9 LVDs (2D): 2.3 cm (2.1 cm-4 m/s) m/s) cm) GRACY (Vmax): 1.6 cm2 ( - ) PV PGmax: 1 mmHg ( - ) LVPWd (2D): 0.8 cm ( - ) AR (PHT): 717 ms ( - ) LVOTd 1.8 cm 1.8 cm mm MV meanP mmHg ( - ) LVEF (2D): 72 (>=54 %) Continued Measurements: Chambers Valvular Assessment AV/MV Valvular Assessment TV/PV Name Value Name Value Name Value LADs Lon.6 cm MV VTI: 47.70 cm CVP (est.): 5 mmHg LA Area: 14.4 cm2 AR Vmax: 4.36 cm/s LA Volume: 42 ml AR ERO: 0.360 cm2 LA Volume Index: 28.2 ml/m2 AR PISA radius: 0.9 cm Patient: SARAH SINGH Study Date: 06/12/2018 Page 1 of 2 01:58 PM AR Reg. Volume: 97.0 ml AR VTI: 270.0 cm Findings: Left Ventricle: Normal size left ventricle. No LV hypertrophy. Normal global systolic LV function. EF is 72 %. No regional wall motion abnormality. Grade 1 diastolic dysfunction (abnormal relaxation). Elevated left ventricular filling pressures.. Right Ventricle: Normal size right ventricle. Normal RV function. Left Atrium: The left atrium is normal in size. Right Atrium: The right atrium is normal in size. Mitral Valve: The mitral valve is normal in appearance. Mild mitral valve regurgitation is present. Aortic Valve: The aortic valve is tri-leaflet. Mild aortic cusp calcification is noted. Moderate aortic valve regurgitation is present. Tricuspid Valve: The tricuspid valve appears normal. Mild tricuspid regurgitation is present. The pulmonary artery pressure is normal. Pulmonic Valve: The pulmonic valve is normal in appearance and function. Aorta: The aorta is normal. Pericardium: No pericardial effusion. Exam Comments: There is multiple episodes of ectopy during the exam. The heart rate was from 70 to 120 bpm. There is moderate aortic regurgitation.. (No Signature Object) Patient: SARAH SINGH Study Date: 06/12/2018 Page 2 of 2 01:58 PM [id number]
== END ==
LOC: FCP 13:42
PROVIDERS: ATTEND Internal Medicine Cardiovascular Disease
DX: I35.1 Nonrheumatic aortic (valve) insufficiency (principal)

== ENCOUNTER → 2018-11-10 | Outpatient (CLI) | payer OTHER, MEDICARE | LOC: FIMAGING 13:57 | PROVIDERS: ATTEND Internal Medicine Endocrinology, Diabetes & Metabolism | DX: Z13.820 Encounter for screening for osteoporosis (principal); M81.0 Age-related osteoporosis without current pathological fracture; Z78.0 Asymptomatic menopausal state ==

== ENCOUNTER 2018-12-25 05:48 | Day surgery (SDC) | payer OTHER, MEDICARE ==
--- NOTE | 2018-12-24 23:07 | GHP ---
[f rep st] PREOP HISTORY AND PHYSICAL HISTORY OF PRESENT ILLNESS: The patient is a 78-year-old female I have been treating for foot problems since early 2016, hallux valgus deformity on her left foot with a crossover 2nd toe. We have tried padding, changing shoes, decreased activity, all of which have failed over the years, but at this point they have become too severe, the pain has gotten too consistent, to the point where she cannot wear normal shoes, difficulty doing activity. At this point, she wanted a more definitive approach, wanted a permanent correction. She is an extremely healthy 79-year-old female. She__surgical ORIF of ___ _arm complication or problems with anesthesia. MEDICATIONS: She is on hormone replacement, multivitamins. No other medications. ALLERGIES: She has no known drug allergies. SOCIAL HISTORY: She denies ever using tobacco products. Alcohol use is less than 2 ounces per week. FAMILY HISTORY: She has no unusual family history of unusual health problems. She does have a strong family history of bunion deformity. PHYSICAL EXAMINATION: At her preop evaluation: VASCULAR: Pulses are 2/4 dorsal pedal and posterior tibial arteries. Capillary refill less than 5 seconds to digits x10. Minimal varicosities and no edema in either extremity. NEUROLOGIC: Normal sharp, dull, light touch, proprioception all intact and symmetric to both extremities. SKIN: Normal temperature, texture, turgor, and normal hair distribution, bilateral. MUSCULOSKELETAL: She has 5/5 manual muscle testing to the extrinsic as well as intrinsic muscles of both feet. She walks with a fully propulsive phase of gait. Significant pain and crepitation when placed in a corrected position on the left great toe joint. She has a medially deviated 1st metatarsal, laterally deviated in the hallux on the left foot, with severe hammertoe slowly crossing over the great toe. She does have pain along the 2nd metatarsophalangeal joint plantarly because of elevation of the 1st metatarsal. REVIEW OF SYSTEMS: It should be noted, she has not had any recent or significant health problems, including headaches, vision, hearing, nasal or throat problems or changes. Denies any cardiac, respiratory, GI, , neurologic , dermatologic, or other musculoskeletal problems. IMAGING: X-rays were taken at her preop evaluation. Showed elevated hallux abductus angles, elevated intermetatarsal angle to approximately 14 degrees. She has a positional deformity with severe hammertoe of 2nd toe. Very long 2nd toe, a Hay's foot type. ASSESSMENT: Severe hallux valgus deformity, left foot. Hammertoe, 2nd toe, left foot. PLANNED PROCEDURES: 1. Modified Fernandez bunionectomy with osteotomy screw fixation. 2. Niall osteotomy screw fixation. 3. Modified post arthroplasty with extensor tendon lengthening and probable flexor tendon release. At her preop, we discussed risks and complications, including residual pain, delayed healing. Patient understood. Consent form was signed and witnessed. She was given both oral and written postop instructions along with a prescription for pain meds, Vicodin 5/325, #30, one tab p.o. q.4-6 h. p.r.n. pain. She will be followed up x3 days postop at [facility] [place] , and she was given my cell phone number for 24-hour call should she have any problems or questions. /[id number]/MODL MTDD
[2018-12-25] MEDS ORDERED: LR 1,000 ML IV ONE (05:58)
[2018-12-25] MEDS ORDERED: BUPIVACAINE/EPI 0.25% 30 ML SDV ONE (06:57)
[2018-12-25] MEDS ORDERED: LIDO/EPI 1% **Not for Epidural 20 ML MDV ONE (06:57)
[2018-12-25] MEDS ORDERED: ceFAZolin 1 GM/5 ML SYR ONE (06:58)
--- NOTE | 2018-12-25 07:00 | PDANEPAE ---
ANE History of Present Illness L bunionectomy. ANE Past Medical History - Cardiovascular History Hx Hypertension: No Hx Arrhythmias: No Hx Chest Pain: No Hx Coronary Artery / Peripheral Vascular Disease: No Hx CHF / Valvular Disease: No Hx Palpitations: No Cardiovascular History Comment: on Atorvastatin x 3 1/2 mos. 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 feels like food can get stuck-rarely - Other Health History Other Health History: DRY ITCHY SKIN - Chronic Pain History Chronic Pain: No - Surgical History Prior Surgeries: RTC R. TIBAL LIGATION. BLADDER SLING. HUMERUS REPAIR. CATARACTS. PELVIC FX RAMI IN PAST ANE Review of Systems Review of Systems: - Exercise capacity METS (RN): 6 METS ANE Patient History - Allergies Allergies/Adverse Reactions: narcotics Allergy (Uncoded 05/10/17 11:42) Vomiting - Home Medications Home Medications: Cholecalciferol Vit D3 [Vitamin D3 (*)] 1,000 units PO DAILY 11/08/16 [Last Taken 12/18/18] Herbals/Supplements -Info Only 1 ea PO DAILY 11/08/16 [Last Taken 12/18/18] [place]-3 Fatty Acids [Fish Oil 1000 mg (*)] 1,000 mg PO DAILY 11/08/16 [Last Taken 12/18/18] Aspirin [Aspirin 81mg (*)] 81 mg PO DAILY 05/06/17 [Last Taken 12/18/18] Atorvastatin Calcium [Lipitor 20 mg (*)] 20 mg PO HS 05/06/17 [Last Taken 21:30] - NPO status NPO Since - Liquids (Date): 12/24/18 NPO Since - Liquids (Time): 21:30 NPO Since - Solids (Date): 12/24/18 NPO Since - Solids (Time): 19:30 - Anes Hx Anes Hx: post operative nausea and vomiting (after RC repair, no problems after hysterectomy.) - Smoking Hx Smoking Status: Never smoked Marijuana use: No - Alcohol Use Alcohol Use: Other (1 drink/week) - Family Anes Hx Family Hx Anesthesia Complications: NEG ANE Labs/Vital Signs - Vital Signs Blood Pressure: 156/86 Heart Rate: 67 Respiratory Rate: 14 O2 Sat (%): 97 Height: 154.94 cm Weight: 51.71 kg ANE Physical Exam - Airway Neck exam: FROM Mallampati Score: Class 1 Mouth exam: normal dental/mouth exam - Pulmonary Pulmonary: clear to auscultation - Cardiovascular Cardiovascular: regular rate and rhythym - ASA Status ASA Status: II ANE Anesthesia Plan Anesthesia Plan: GA with mask
[2018-12-25] MEDS ORDERED: PROPOFOL 200 MG/20 ML VIAL ONE ×2 (07:07→08:09)
[2018-12-25] MEDS ORDERED: fentaNYL 100 MCG/2 ML INJ ONE (07:07)
[2018-12-25] MEDS ORDERED: ceFAZolin 2 GM/DEXTROSE 100 ML IV ONE (07:14)
--- NOTE | 2018-12-25 07:16 | PDHPUP ---
History & Physical Update H&P update statement: This history and physical update is based on an assessment of the patient which was completed after admission or registration (within 24 hours), but prior to the surgery/procedure. H&P update: H&P reviewed & patient examined (no changes), no change in patient' s condition since H&P completed
[2018-12-25] MEDS ORDERED: MIDAZOLAM 2 MG/2 ML VIAL ONE (07:19)
[2018-12-25] MEDS ORDERED: LIDOCAINE 1% 300 MG/30 ML SDV ONE (07:23)
[2018-12-25] MEDS ORDERED: PHENYLEPHRINE HCL 100 MCG/ML SYR ONE (08:02)
[2018-12-25] MEDS ORDERED: NALOXONE HCL 0.4 MG/ML INJ IVP PRN (08:59)
[2018-12-25] MEDS ORDERED: ACETAMINOPHEN 500 MG TAB PO PRN (08:59)
--- NOTE | 2018-12-25 10:50 | POSTANESTH ---
Post Anesthetic Evaluation Cardiovascular Status: Similar to Pre-Op Cond Respiratory Status: Normal, Stable Level of Consciousness/Mental Status: Can Participate in Eval Pain Control: Adequate, Prn Tx Ordered Nausea/Vomiting Control: Adequate, Prn Tx Ordered Complications Possibly Related to Anesthesia: None Noted
[2018-12-25 11:42] VITALS: BP 142/78
--- NOTE | 2018-12-25 12:53 | GOP ---
[f rep st] CONSULTATION PREOPERATIVE DIAGNOSES: Hallux valgus deformity, left; hammertoe, 2nd toe, left. POSTOPERATIVE DIAGNOSES: Hallux valgus deformity, left; hammertoe, 2nd toe, left. PROCEDURE: 1. Modified Fernandez bunionectomy with osteotomy screw fixation. 2. Niall osteotomy screw fixation. 3. Modified post arthroplasty 2nd toe, left foot. ANESTHESIA: Dr. Darren MD, MAC plus local infiltration of 5 mL of 0.25% Marcaine with epinephrine an d additional 5 mL of 1% lidocaine plain. ESTIMATED BLOOD LOSS: Less than 5 mL. There were no complications and no drains placed into the ope rative site. DESCRIPTION OF PROCEDURE: The patient was taken to the operating room, placed in supine position. A fter local MAC anesthesia, the left lower extremity was elevated, prepped and draped in the usual mary jo rile OR fashion achieving a sterile field about the entire distal aspect of the extremity. After exs anguination, tourniquet was inflated to 250 mm. Total tourniquet time was approximately 78 minutes. Attention was then directed to the dorsal aspect of the great toe joint on the left side where appro ximately 3-4 inch linear incision was made medial to the extensor hallucis longus tendon. Dissection was carried down to the level of the joint capsule. Care was taken to preserve the neurovascular st atus to the area. The adductor tendon was identified in the 1st intermetatarsal space, released from its lateral attachments into the great toe and tagged for later transfer into the dorsal aspect of t he joint capsule. At this point, the joint capsule was entered via single linear incision reflected medially and laterally off the base of the proximal phalanx as well as the metatarsal head. A large bony prominence was noted on the medial aspect of the 1st metatarsal head and this was removed utiliz ing a bone saw. A 0.028 K-wire was then placed through the metaphysis of the metatarsal orienting th e K-wire such that it would slightly plantar flex the metatarsal. V or chevron-type osteotomy was th en carried out. The metatarsal head was shifted laterally, impacted upon itself and held fast tempor arily with the same 0.028 K-wire. Utilizing AO technique, a single 2.4 mm ostium med screw was place d through the dorsal wing of the osteotomy and retrograded back into the metatarsal with excellent co mpression noted. The K-wire was removed from the operative site. Good stability was noted with the osteotomy. Redundant bone was removed medially utilizing a bone saw and rasped smooth utilizing a ro tary bur. The area was flushed copiously with dilute antibiotic solution. The great toe was taken t hrough range of motion. It was deemed necessary to do a secondary procedure to keep it from pushing on the 2nd toe. At this point, attention was directed to the proximal phalanx where a periosteal inc ision was made and reflected medially and laterally off the base of the proximal phalanx. At this po int, a wedge osteotomy with the apex proximal lateral was done into the proximal phalanx. This wedge of bone was removed from the operative site. The great toe was swung medially away from the 2nd toe utilizing a fracture reduction clamp as temporary fixation. At this point, 2 parallel 2.4 mm ostium med screws were placed perpendicular to the osteotomy site from proximal medial to distal lateral. Excellent compression was noted intraoperatively on the osteotomy and good stability was noted intrao peratively. The fracture reduction clamp was removed. The great toe was taken through range of ha on and deemed to be anatomically aligned. Redundant capsule was capsulotomy medially. The area was flushed copiously with dilute antibiotic solution. At this point, the adductor tendon was transferre d over into the dorsal aspect of the joint capsule utilizing 3-0 Vicryl. It was tacked to the medial aspect of the joint capsule on the 1st metatarsal. Therefore, it would help close the intermetatars al angle and stabilize the 1st ray. At this point, the joint capsule was reapproximated utilizing 3- 0 Vicryl in a simple interrupted suture and periosteum was closed utilizing 4-0 Vicryl in a simple in terrupted suture. The area was flushed copiously once again. Subcu closure was carried out via 4-0 Vicryl in a horizontal mattress suture and skin closure was carried out via 4-0 Prolene in a running subcuticular stitch. At this point, the great toe again was taken through range of motion. Foot was placed in a weightbearing position. The toe was noted to be anatomically aligned intraoperatively. At this point, attention was directed to the 2nd toe where approximately 3 inch linear incision was made from the metatarsophalangeal joint distally into the proximal interphalangeal joint. There was a dorsal corn which was excised intraoperatively utilizing converging semi-elliptical incisions over the corn dorsally at the proximal interphalangeal joint. At this point, the extensor tendon was iden tified and Z-lengthening was carried out to plantar flex the entire toe. This was successful. The t oe was inordinately long at this point and was approximately 0.5 inch longer than the great toe intra operatively. A capsular incision was then made and the proximal phalangeal joint was reflected media lly and laterally and post type arthroplasty was carried out, resection of the head of the proximal p halanx. Once this was resected, it shortened the toe very nicely. The extensor tendon was reapproxi mated utilizing 4-0 Vicryl in a simple interrupted suture. At this point, the foot was placed in a w eightbearing position. The 2nd toe was deemed to be anatomically aligned. The area was flushed copi ously with dilute antibiotic solution. Subcu closure was carried out via 4-0 Vicryl in a horizontal mattress suture and skin closure was carried out via 4-0 Prolene in a running subcuticular stitch. B oth incisions were reinforced with Mastisol and Steri-Strips. Sterile dressing, Adaptic, 4 x 4, Klin g and Coban were placed over the entire foot. The tourniquet was released. All digits returned to a uniform pink color within 2-3 minutes post release of the tourniquet. The patient went to recovery in satisfactory state with all vital signs stable. Her prognosis is very good for rapid recovery. A ll postoperative instructions were reiterated in recovery. She was given my cell phone number for 24 -hour call should she have any problems or questions postoperatively. /[id number]/MODL
== END 2018-12-25 11:02 | disposition home or self-care (01) ==
LOC: FSGY 05:48
PROVIDERS: ATTEND Podiatrist
DX: M20.12 Hallux valgus (acquired), left foot (principal); M20.42 Other hammer toe(s) (acquired), left foot
CPT/HCPCS: C1713; J2250; J2370; J2704; J3010